=== PATIENT | female | born 1930 | race Caucasian/White ===

== ENCOUNTER 2016-09-08 10:27 | Observation (INO) | payer MEDICARE, OTHER ==
[~2016-09-08] VITALS: Ht 167.6 cm; Wt 120.4 kg
[2016-09-08] VITALS (8 sets, daily range): BP systolic 86–154; BP diastolic 50–79; PULSE 60–68; RESP 16–20; O2SAT 94–97
[~2016-09-08 10:27] MED LIST: ASPI-628 PO; ATRV10T PO; CEPH500C PO; CHOL200025 PO; CYAN1TAB42 PO; HYDR25TA4 PO; MAGN250T29 PO; METO25TA6 PO; RASA1TAB2 PO; ROPI8TAB PO
--- NOTE | 2016-09-08 13:14 | NUR ---
Admission Received female patient from [facility], pt arrive on unit at about 1210. Pt alert and oriented, denies pain, sob. VSS. telemetry placed. informed of arrival. Pt oriented to unit and call light. POC pending. will continue to monitor.
[2016-09-08] MEDS ORDERED: Alum-Mag Hydrox-Simeth 30 mL Suspension PO PRN (14:30)
[2016-09-08] MEDS ORDERED: Polyethylene Glycol (PEG) 17 Gm Powder PO PRN (14:30)
[2016-09-08] MEDS ORDERED: Ondansetron 2 mg/mL 2 mL Inj IVPUSH PRN (14:30)
[2016-09-08 14:53] LABS: APPEARANCE,URINE HAZY (CLEAR,HAZY); COLOR,URINE YELLOW (YELLOW); OCCULT BLOOD,URINE NEGATIVE (NEGATIVE); PH,URINE 5.5 (5.0-8.0); UROBILINOGEN,URINE NORMAL (NORMAL)
--- NOTE | 2016-09-08 15:00 | NUR ---
Chest pressure pt reported moderate 4-5/10 mid sternal chest pressure. non radiating, denies dizziness. mild anxiety. VSS. EKG obtained. pt stated spontaneous resolve of this pressure after a few minutes. MD informed. pacer interrogated. pt stated pressure lingered scantly until ambulating to bathroom, steady gait with fww. post bathroom visit, pressure gone and patient states she felt much better. will continue to monitor.
--- NOTE | 2016-09-08 15:07 | PCM.HPMED ---
Subjective Date of Service Sep 08, 2016 Primary Provider: Admitting Physician: Shahram Vasquez DO Primary Care Physician: Isabel Montejo MD Attending Physician: Shahram Vasquez DO Admit Status: Direct Admit, Admit to Yellow Team Chief Complaint: Chest pressure History of Present Illness: Lore Prieto is an 86-year-old female with past medical history of paroxysmal A. fib, severe aortic stenosis, congestive heart failure, Parkinson's disease. The patient woke up this morning with some chest pressure which was moderate in nature, no radiation. Accompanied by heart palpitations minor shortness of breath dizziness and weakness. She denies any nausea vomiting, diaphoresis. She got up and took 325 mg of aspirin and called EMS. The patient lives on the [facility], she was seen at the [facility] and transferred here after the physician had discussed with her a&p technician Dr. Membreno who suggested the patient be transferred to [facility]. The patient denies any recent medication changes, she denies any headaches vision changes, congestion sore throat runny nose nausea vomiting diarrhea constipation and abdominal pain dysuria rashes or lesions. She does have some chronic lower extremity edema which is been stable. Review of Systems: As in history of present illness, otherwise 12 point systems negative Allergies Coded Allergies: clarithromycin (Verified Allergy, Unknown, 08/29/14) erythromycin base (Verified Allergy, Unknown, Nausea/Vomiting, 08/30/14) Home Medications Aspirin, Lipitor, Sinemet, flecainide, hydrochlorothiazide, ropinirole, Zoloft, metoprolol, Rasagiline PMH Paroxysmal A. fib, congestive heart failure, macular degeneration, Parkinson's disease, hyperlipidemia, severe aortic stenosis Surgical History Pacemaker, cataract surgery, cholecystectomy, tonsils and adenoids Family History Mother at age 86 of multiple myeloma. Father of the flu but also had Parkinson's. Lots of coronary artery disease in the family Social History Hx Alcohol Use: No Hx Substance Use: No Hx Tobacco Use: Yes Smoking Status: Former Smoker Living Arrangement: Alone Exam Vital Signs Vital Sign - Last Date Time Temp Pulse Resp B/P Pulse Ox O2 Delivery O2 Flow Rate FiO2 09/08/16 12:21 97 Room Air 09/08/16 12:20 63 09/08/16 12:18 37.2 18 128/70 Exam General: Alert, Oriented X3 NAD Head: Normocephalic, atraumatic Eyes: CRISTI, EOMI, no scleral Icterus Oropharynx: pink moist oral mucosa Neck: supple, trachea midline, no adenopathy Chest: clear to auscultation B/L, no wheezing rales or rhonchi Heart: Regular rate and rhythm. Distant heart sounds, 2/6 systolic ejection murmur Abdomen: soft, non-tender. Bowel sounds are normoactive. No guarding or rebound. Extremities: no cyanosis, clubbing. No acute joint inflammation. Chronic lymphedema, 1+ pitting edema in her lower extremities Skin: no acute rashes or lesions noted Neuro: Cranial nerves II-XII intact, no focal findings. Psych: normal judgement and insight. Lab and Diagnostics Labs Labs reviewed from [facility] Hemoglobin 13, WBCs 8.3 platelets 244. Sodium 138, potassium 3.7, BUN 21, creatinine 0.6, blood sugars 105. INR of 1 X-Rays, CTs and MRIs Chest x-ray from transferring hospital showed no acute cardiopulmonary disease 12-lead ECG EKG reviewed shows atrial paced rhythm with left axis deviation and a rate of 60 Assessment & Plan This is an 86-year-old female with known aortic stenosis, congestive heart failure and paroxysmal A. fib. She presented with nonspecific/atypical chest pressure and was transferred to [facility] per her a&p technician's recommendation Dr. Membreno. On admission she was chest pain-free. Chest pain: -Trend troponin, when necessary EKG -Aspirin, statin, oxygen as needed, morphine and nitroglycerin as needed -I discussed the patient with cardiology who recommended trending troponin, no stress test due to severe aortic stenosis. He did not recommend echocardiogram as the patient already has known severe aortic stenosis. Aortic stenosis: Severe -Last echocardiogram was October 2015. -Cardiology recommended against repeat echo -Consideration of valvular replacement should be a discussion between her a&p technician and the patient. She has an appointment with Dr. Membreno next month Paroxysmal A. fib: -Watch on telemetry -Continue metoprolol, she takes 50 mg every morning and 75 mg every afternoon. Continue flecainide Hyperlipidemia: -Continue Lipitor Parkinson's disease: -Continue home meds as appropriate CODE STATUS: Full code DVT prophylaxis: Heparin every 8 Disposition: Patient lives at home alone, independent with her ADLs. Pending hospital course The patient has been placed on observation status Time spent 65 minutes Shahram Vasquez DO Sep 08, 2016 15:07
[2016-09-08] MEDS ORDERED: METO75TA PO (15:51)
[2016-09-08] MEDS ORDERED: ASPI-973 PO (15:58)
[2016-09-08] MEDS ORDERED: LVCR25100 PO (17:20)
--- NOTE | 2016-09-08 18:22 | NUR ---
Case Management: ANAND explained to patient at 1800, all questions answered. Signed original placed in chart, copy given to patient. Offered Medicare Part D Drug info--patient declined. Renetta Jha RN
[2016-09-08] MEDS: Heparin 5,000 Unit/mL Inj SUBQ SCH (19:30)
[2016-09-08] MEDS ORDERED: ROPINIROLE 8 MG PO SCH (21:00)
[2016-09-09] VITALS (8 sets, daily range): BP systolic 86–152; BP diastolic 48–78; PULSE 62–72; RESP 16–20; O2SAT 95–97
[2016-09-09] MEDS: Heparin 5,000 Unit/mL Inj SUBQ SCH ×3 (02:35→17:05)
--- NOTE | 2016-09-09 06:25 | NUR ---
Patient has denied any chest pain over night. She did however report some lightheadedness when sitting up in chair earlier in the evening. Her SBP while sitting in chair was in 80s, returning to 120s after lying down. An orthostatic bp was checked later when she got up to bathroom with no drop in pressure noted. Patient denied any lightheadedness at this time. Patient is complaining about the swelling in her legs, SCDs placed on legs and feet floated on pillows.
--- NOTE | 2016-09-09 08:04 | PCM.PNMED ---
Subjective Date of Service Sep 09, 2016 Subjective No CP or dyspnea. A lot of leg edema over last 2 months. No palitations. No cough, nausea, or vomiting. Exam Vital Signs Vital Sign - Last Date Time Temp Pulse Resp B/P Pulse Ox O2 Delivery O2 Flow Rate FiO2 09/09/16 05:08 62 125/60 09/09/16 05:08 36.3 09/08/16 23:47 16 96 Room Air Exam Alert and oriented. Fluent speech. Anicteric sclera. Lungs clear, normal rate heart regular Abdomen soft, ND gross pedal edema bilaterally No rash IVs and Medications Medications Reviewed: Medications were reviewed in detail Lab and Diagnostics X-Rays, CTs and MRIs Chest x-ray from transferring hospital showed no acute cardiopulmonary disease 12-lead ECG EKG reviewed shows atrial paced rhythm with left axis deviation and a rate of 60 Assessment & Plan This is an 86-year-old female with known aortic stenosis, congestive heart failure and paroxysmal A. fib. She presented with nonspecific/atypical chest pressure and was transferred to [facility] per her detonator maker's recommendation Dr. Membreno. On admission she was chest pain-free. 1. Chest pain, POA and resolved: -Trend troponin, when necessary EKG -Aspirin, statin, oxygen as needed, morphine and nitroglycerin as needed -I discussed the patient with cardiology who recommended trending troponin, no stress test due to severe aortic stenosis. He did not recommend echocardiogram as the patient already has known severe aortic stenosis. All trops negative, she had transient palpitations yesterday. Aortic stenosis: Severe -Last echocardiogram was October 2015. -Cardiology recommended against repeat echo -Consideration of valvular replacement should be a discussion between her detonator maker and the patient. She has an appointment with Dr. Membreno next month Paroxysmal A. fib, chronic: -Watch on telemetry -Continue metoprolol, she takes 50 mg every morning and 75 mg every afternoon. Continue flecainide She also has a H/O transient low BP recently. Hyperlipidemia: -Continue Lipitor Parkinson's disease: -Continue home meds as appropriate CODE STATUS: Full code DVT prophylaxis: Heparin every 8 Disposition: Patient lives at home alone, independent with her ADLs. Pending hospital course The patient has been placed on observation status Will discuss with cardiology this AM. Pain Evaluation: Adequate Pain Control Resuscitation Status: CPR: Attempt Resuscitation Time spent 25 min Naresh Quezada MD Sep 09, 2016 08:04
--- NOTE | 2016-09-09 14:28 | NUR ---
Medications 0940 - Notified Dr. Quezada in morning multi-disciplinary rounds that her Metoprolol home dose was different than what was ordered. He said he would look into it and correct or possibly change the dosage. Also, notified him that her Sinemet dosage had not been confirmed yet with her Primary Care Provider (PCP). He said once it had been confirmed to let him know and he would reorder it. 1015 - Spoke with Dr. Quezada again as she had requested that her Zoloft be discontinued since she said one of her doctors had been thinking about stopping due to a possible drug interaction with her Sinemet. He said he would discontinue it which he did. Also, pointed out that upon taking her blood pressure this morning her right arm read 86/48 and her left arm was 135/49. Dr. Velázquez was notified sometime later as well and said to take her blood pressure on her left arm from now on. Notified Belem the PROVIDER RELATIONS CONSULTANT. Her Sinemet dose was clarified from her PCP records and discussed with Pharmacist Amrit Keys. Dr. Quezada re-ordered it. Patient brought loose pills of Ropinirole in from home instead of in a pill bottle. Per Hospital policy it cannot be given this way. Amrit placed an order for the hospital pharmacy to provide the medication instead. Care continues.
[2016-09-09] MEDS ORDERED: Carbidopa-Levodopa 50-200 mg ER12 Tablet PO SCH (14:30)
--- NOTE | 2016-09-09 14:44 | CONS ---
[address] [address] CONSULTATION REPORT PATIENT: YESI PRABHAKAR : 1930 MR#: [id number] ADMIT: 09/08/2016 JOB ID: [id number] DATE OF SERVICE: 09/09/2016 HISTORY OF PRESENT ILLNESS: The patient is an 86-year-old female that I have been asked to see by the hospitalist admitted with symptoms of chest discomfort in the setting of severe aortic stenosis. The patient is a delightful 86-year-old female who lives independently in a small apartment in [place] with her daughter close by. She has a history of Parkinson's disease, but is able to take care of all of her usual daily activities and chores and gets around with the aid of a walker without significant difficulty. She has a history in the past of paroxysmal atrial fibrillation and tachybrady syndrome and underwent pacemaker placement in 2014 and has been on low-dose flecainide therapy for some time now. She has also been followed for aortic stenosis identified on exam in June 2014 with an echocardiogram at that time demonstrating mild to moderate aortic stenosis and a repeat echocardiogram in October of 2015 showing evidence of severe aortic stenosis. Over the past year, the patient has been aware of gradually progressive fatigue and weariness. She does not describe significant exertional dyspnea or any anginal discomfort and has no complaints of nocturnal pulmonary congestion. 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 The week before she had another episode similar, but this occurred after she had been up and about during the day but was sitting at rest and lasted for briefer period of time, perhaps 5 minutes. She contacted the [place] [facility] and was seen there for evaluation of chest discomfort, and because of her history, she was transported to [facility] for further investigation. She has not had any recurrent episodes. Her pacemaker device check last night by the device rep I have reviewed and a copy is placed on the chart demonstrating what appears to be an atrial tachycardia at a rate of around 150 beats per minute with 1:1 ventricular conduction. PAST MEDICAL HISTORY: Notable for chronic lower extremity edema, the etiology of which is uncertain. Her echocardiogram in October 2015 showed normal right ventricular size and function, within normal estimated pulmonary artery pressure. She has a history of Parkinson's disease with bilateral upper extremity parkinsonian tremor. She has a history of moderate obesity and hypertension. REVIEW OF SYSTEMS: Notable for daytime hypersomnolence and increased fatigue. Dr. Montejo, her primary care provider in [place], has ordered a home sleep apnea evaluation which is due in the very near future. REVIEW OF SYSTEMS: Otherwise unremarkable. PHYSICAL EXAMINATION: Shows a very pleasant, articulate 86-year-old female. She has obvious parkinsonian tremor in both upper extremities. She appears well and has no of tachypnea apparent. She is examined sitting in the chair. Her jugular venous pressure is difficult to evaluate, but her jugular venous pulse is not visible above the clavicle in the sitting position. Lung hairston are clear bilaterally. Heart tones are fairly distant, but she does have a soft-sounding mid-peaking systolic ejection murmur. I do not hear a ventricular gallop. Abdomen is moderately obese. Distal extremities show 3+ bilateral lower extremity edema with moderate erythema visible. LABORATORY: Notable for serial normal troponins. BNP is elevated at 746. Chest x-ray appears unremarkable. EKG shows an atrially paced rhythm with otherwise a normal QRS pattern. IMPRESSION: This patient's episode of chest discomfort was clearly related to a supraventricular tachycardia of limited duration. This does not represent an acute coronary syndrome, and she requires no further investigation in that regard. I do want to repeat her echocardiogram to look both and her central venous pressure and to re-evaluate for aortic valve since her examination is a little bit difficult, and I suspect that her aortic stenosis is progressive. At this point, however, I do not believe that she is clearly symptomatic from her aortic stenosis, and I would wonder whether or not her dysrhythmias and daytime fatigue might not represent side effects from obstructive sleep apnea. I am going to review the results of the echocardiogram with the patient later today. I am going to change her from hydrochlorothiazide to low-dose furosemide for her edema and increase her metoprolol to 75 mg b.i.d. and see if that will make a difference with her dysrhythmia. She is scheduled to follow up with Dr. Membreno in our office in about three weeks, and she will keep that appointment. As long as her echocardiogram does not demonstrate any concerning abnormalities, I think it is reasonable for her to be discharged home later today with these adjustments made.
--- NOTE | 2016-09-09 16:04 | DRSVH ---
[facility] [address] [place] [address] Echocardiogram Report Name: YESI PRABHAKAR RStudy Date: 09/09/2016 Height: 66 in Hospital Exam Location: [facility] Weight: 265 lb Gender: Female BSA: 2.3 m2 : 1930 Age: 86 yrs BP: 135/49 mmHg Reason For Study: Aortic valve stenosis Ordering Physician: Performed By: Ny Maldonado Referring Physician: Isabel Montejo Interpretation Summary The study quality was technically difficult. The left ventricle is normal in size. The ejection fraction is estimated to be 60-65%. The right ventricle is normal in size and function. There is a pacemaker lead in the right ventricle. There is mild to moderate mitral regurgitation. The aortic valve is moderately calcified. The aortic valve is not well visualized. The peak aortic velocity is 3.6 m/sec. The aortic valve mean gradient is 34 mmHg. The calculated aortic valve area is 0.79 cm2. There is moderate to severe aortic stenosis. There is mild tricuspid regurgitation. The right ventricular systolic pressure is estimated at 36 mmHg assuming a right atrial pressure of 8 mm Hg. Procedure: A two-dimensional transthoracic echocardiogram with color flow and Doppler was performed. There is no prior echocardiogram noted for this patient. The study quality was technically difficult. The patient was in normal sinus rhythm during the exam. Left Ventricle: The left ventricle is normal in size. The LVOT diameter is 2.2 cm. The LVOT velocity is 0.74 m/s. Left ventricular wall thickness is mildly increased. There is no thrombus. The ejection fraction is estimated to be 60-65%. There are no obvious focal wall motion abnormalities noted but poor endocardial definition reduces the sensitivity for the detection of such. Spectral Doppler of the mitral valve is reversed, with an E/A wave ratio < 1.0. Right Ventricle: There is a pacemaker lead in the right ventricle. The right ventricle is normal in size and function. Atria: The left atrium is moderately dilated. Right atrial size is normal. There is no Doppler evidence for an interatrial shunt. Mitral Valve: There is mild mitral annular calcification. There is mild to moderate mitral regurgitation. Aortic Valve: The aortic valve is not well visualized. The aortic valve is moderately calcified. The calculated aortic valve area is 0.79 cm2. The peak aortic velocity is 3.6 m/sec. The aortic valve mean gradient is 34 mmHg. There is moderate to severe aortic stenosis. There is trace aortic regurgitation. Tricuspid Valve: The tricuspid valve is not well visualized, but is grossly normal. There is mild tricuspid regurgitation. The right ventricular systolic pressure is estimated at 36 mmHg assuming a right atrial pressure of 8 mm Hg. Pulmonic Valve: The pulmonic valve is not well visualized. Great Vessels: The aortic root is normal size. The ascending aorta is normal in size. The aortic arch could not be visualized. The IVC is dilated (diameter is greater than 2.1 cm) yet it collapses greater than 50% with a sniff. This suggests a right atrial pressure of 8 mm Hg. Pericardium/ Pleura There is no pericardial effusion. MMode/2D Measurements & Calculations LVIDd: 5.5 cm LA dimension: 4.5 cm RA long axis LVOT diam LVIDs: 3.5 cm FS: 36.8 % LA A2 area: 25.1 cm RA area AoV Opening EPSS: 0.42 cm LA A4 area: 20.3 cm IVSd: 1.1 cm LA length (vol): 4.9 cm: 17.0 cm Ao root diam LVPWd: 0.88 cm LA vol: 88.0 ml RA vol LA vol index : 47.1 ml Aortic Jxn RA : 20.9 mm2 asc Aorta IVC diam: 2.5 cm Diam: 2.9 cm LV roque. diameter/BSA LV sys. diameter/BSA RVD1 (basal) (cm/m^2): 2.5 (cm/m^2): 1.6 Doppler Measurements & Calculations Ao V2 max MV E max paul MV E/A: 0.79 TR max paul : 359.0 cm/sec : 68.6 cm/sec Med Peak E' Paul : 265.0 cm/sec Ao max P.6 mmHg MV A max paul TR max PG Ao mean P.8 mmHg : 86.8 cm/sec E/E' med: 15.3 : 28.1 mmHg LVOT Max Paul MV P1/2t Lat Peak E' Paul PA Accel Time : 74.3 cm/sec : 76.3 msec : 0.11 sec E/E' lat: 11.7 YAHAIRA(I,D): 0.79 cm E/e' average sev ratio: 0.21 MV dec time: 0.25 sec MV P1/2t max paul Ao V2 mean LV V1 max PG : 275.0 cm/sec MVA(P1/2t) Ao V2 VTI: 99.4 cm LV V1 VTI : 20.6 cm : 2.9 cm2 YAHAIRA(V,D): 0.79 cm2 YAHAIRA indexed to BSA (cm^2/m^2): 0.35 Reading Physician:PM
--- NOTE | 2016-09-09 16:11 | NUR ---
Social Work Note: Initial Assessment Data& Assessment: EMR reviewed. SW met with pt and pt daughter at bedside to discuss discharge planning, SW role explained. Lore Prieto is a 86 year old female under observation for chest pain. Pt has Medicare and [employer] supplemental insurance coverage. Pt sees Isabel Montejo MD for primary care. Pt lives in [place] in [place] first floor apartment [place]. Pt does not drive. Pt uses a 3 wheeled walker at baseline. Pt does not have SNF hx but has had [facility] in the past. Pt feels like she is not at her baseline mobility and is concerned about readmission to the hospital. SW and pt discussed having home health services again. Pt is agreeable to [facility] again, ( list provided for preferences, however [facility] is the only agency that services [place]). Referral to [facility] for RN, PT and SW. Pt does not have LTC insurance. Pt is not a service connected herself, but her was 100% service connected and that is why she has the secondary [facility] insurance coverage. Pt has DPOA/Advance Directive paperwork completed, SW requested a copy for her chart when possible. Pt denies any other needs at this time. SW to continue to follow if any needs arise. Plan: Anticipated discharge home via POV when medically ready with [facility] RN, PT and SW to follow. Pt denies any other needs at this time. SW to continue to follow if any needs arise. ANA Wills Addendum: 09/09/16 at 1617 by ERIN VAUGHAN Amended: Links added.
--- NOTE | 2016-09-09 17:49 | PCM.DIMED ---
Discharge Instructions Date of Service Sep 09, 2016 Dates of Hospitalization Sep 08, 2016 at 12:16 Discharge Diagnosis Discharge Diagnosis 1. Paroxysmal atrial tachycardia 2. Moderate aortic stenosis 3. Leg edema Diet Low fat, Low Sodium Activity Limited until seen by PCP Patient Instructions Follow-up Provider: Isabel Montejo MD Follow-up with PCP in: 1 week Provider: Kim Membreno MD Follow-up in: 3 weeks Naresh Quezada MD Sep 09, 2016 17:49
[2016-09-09] MEDS ORDERED: FUR20 PO (17:51)
[2016-09-09] MEDS ORDERED: METO50TA3 PO (17:51)
[2016-09-09] MEDS ORDERED: POTA10CA42 PO (17:51)
--- NOTE | 2016-09-09 18:30 | NUR ---
Discharge She discharged from [facility] at 1830 and was taken via wheelchair to her daughter's car by Slime BULLARD. She collected and took all her belongings. IV and telemetry were discontinued intact. Her discharge paperwork was given to her and discussed with her daughter who said she would discuss it with [place] mom [place] they were in a [place] to discharge so they could make it to the [facility] in time. Paperwork given (hard copy of prescriptions, ferry pass, care notes, MD/nurse instructions). Spoke with Dr. Quezada multiple times before discharge asking him questions and updating him. She wanted to know how she was going to be able to take her medication tonight as the pharmacies were closing. Per Dr. Quezada, she can take her home Metoprolol, but adjust the dose to match the new order and then take her Lasix and Potassium tomorrow once she gets the medications from the pharmacy. Relayed this to the daughter who said she'd tell her mom.
--- NOTE | 2016-09-10 12:55 | PCM.DC.MED ---
Discharge Summary Date of Service Sep 09, 2016 Dates of Hospitalization Date of Hospital Admission Sep 08, 2016 at 12:16 Date of Discharge: Sep 09, 2016 Providers: Admitting Physician: Shahram Vasquez DO Primary Care Physician: Isabel Montejo MD Attending Physician: Shahram Vasquez DO Diagnosis at Time of Discharge Diagnosis at Time of Discharge 1. Paroxysmal atrial tachycardia 2. Moderate aortic stenosis 3. Leg edema Consultations Cardiology, [place] Procedures XRay, CTs & MRIs Chest x-ray from transferring hospital showed no acute cardiopulmonary disease ECG 12 Lead EKG reviewed shows atrial paced rhythm with left axis deviation and a rate of 60 Cardiac Echo Impression nterpretation Summary The study quality was technically difficult. The left ventricle is normal in size. The ejection fraction is estimated to be 60-65%. The right ventricle is normal in size and function. There is a pacemaker lead in the right ventricle. There is mild to moderate mitral regurgitation. The aortic valve is moderately calcified. The aortic valve is not well visualized. The peak aortic velocity is 3.6 m/sec. The aortic valve mean gradient is 34 mmHg. The calculated aortic valve area is 0.79 cm2. There is moderate to severe aortic stenosis. There is mild tricuspid regurgitation. The right ventricular systolic pressure is estimated at 36 mmHg assuming a right atrial pressure of 8 mm Hg. Invasive Procedures None Brief History Lore Prieto is an 86-year-old female with past medical history of paroxysmal A. fib, severe aortic stenosis, congestive heart failure, Parkinson's disease. The patient woke up this morning with some chest pressure which was moderate in nature, no radiation. Accompanied by heart palpitations minor shortness of breath dizziness and weakness. She denies any nausea vomiting, diaphoresis. She got up and took 325 mg of aspirin and called EMS. The patient lives on the [facility] [place], she was seen at the [facility] and transferred here after the physician had discussed with her state editor Dr. Membreno who suggested the patient be transferred to [facility]. The patient denies any recent medication changes, she denies any headaches vision changes, congestion sore throat runny nose nausea vomiting diarrhea constipation and abdominal pain dysuria rashes or lesions. She does have some chronic lower extremity edema which is been stable. Hospital Course This is an 86-year-old female with known aortic stenosis, congestive heart failure and paroxysmal A. fib. She presented with nonspecific/atypical chest pressure and was transferred to [facility] per her state editor's recommendation Dr. Membreno. On admission she was chest pain-free. 1. Chest pain, POA and resolved: -Trend troponin, when necessary EKG -Aspirin, statin, oxygen as needed, morphine and nitroglycerin as needed -I discussed the patient with cardiology who recommended trending troponin, no stress test due to severe aortic stenosis. He did not recommend echocardiogram as the patient already has known severe aortic stenosis. All trops negative, she had transient palpitations yesterday. This is felt to relate to transient PAT. This was verified from her pacemaker interrogation. Her beta blockade will be increased to 75 mg metoprolol twice a day to decrease tachycardia. Was also noted that her blood pressure right arm is much lower than the blood pressure left arm and this must be considered in the future when following blood pressure and guiding therapy. Aortic stenosis: Severe -Last echocardiogram was October 2015. -Cardiology recommended against repeat echo -Consideration of valvular replacement should be a discussion between her state editor and the patient. She has an appointment with Dr. Membreno next month Echo revealed moderate to perhaps severe aortic stenosis but no evidence of interval changes. This is considered clinically stable and will be followed up by Dr. Membreno. Paroxysmal A. fib, chronic: -Watch on telemetry -Continue metoprolol, she takes 50 mg every morning and 75 mg every afternoon. Continue flecainide at prehospitalization dosing. She also has a H/O transient low BP recently. Hyperlipidemia: -Continue Lipitor Parkinson's disease: -Continue home meds as appropriate CODE STATUS: Full code DVT prophylaxis: Heparin every 8 Disposition: Patient lives at home alone, independent with her ADLs. Pending hospital course The patient has been placed on observation status Exam Vital Signs (Last) Date Time Temp Pulse Resp B/P Pulse Ox O2 Delivery O2 Flow Rate FiO2 09/09/16 16:12 36.6 63 18 134/78 96 Room Air Exam Patient is seen and examined on the day of discharge Test 09/08/16 14:29 09/08/16 14:40 09/09/16 02:19 Urine Color Yellow (YELLOW) Urine Appearance Hazy (CLEAR,HAZY) Urine pH 5.5 (5.0-8.0) Urine Specific Huntley 1.015 (1.003-1.035) Urine Protein Negativemg/dL (NEG,TRACE) Urine Glucose (UA) Negativemg/dL (NEGATIVE) Urine Ketones Negativemg/dL (NEGATIVE) Urine Occult Blood Negative (NEGATIVE) Urine Nitrite Negative (NEGATIVE) Urine Bilirubin Negative (NEGATIVE) Urine Urobilinogen Normalmg/dL (NORMAL) Urine Leukocyte Esterase Small (NEGATIVE) Urine RBC 0-2/hpf (0-2) Urine WBC 11-50/hpf (0-5) Urine Epithelial Cells Many/hpf (NONE-MOD) Urine Crystals None seen (NONE SEEN) Urine Bacteria Moderate/hpf (NONE-FEW) Urine Hyaline Casts None/lpf (NONE) Urine Granular Casts None seen (NONE SEEN) Urine Waxy Casts None seen (NONE SEEN) Urine Red Blood Cell Casts None seen (NONE SEEN) Urine White Blood Cell Casts None seen (NONE SEEN) Urine Mucus None seen (None Seen) Urine Trichomonas None seen (NONE SEEN) Urine Yeast None (NONE SEEN) Urinalysis Comment None Urine Culture Reflexed Indicated Pro-B-Type Natriuretic Peptide 746.6pg/mL (0-738) Troponin T 0.010ug/L (0.0-0.011) Discharge Medications Discharge Medications Aspirin (Aspirin) 81 Mg Tablet 81 MG PO DAILY (Reported) Atorvastatin (Lipitor) 10 Mg Tab 10 MG PO DAILY (Reported) Carbidopa/Levodopa 25-100 mg (Sinemet 25-100 mg) 1 Each Tablet 1 TABLET PO TID ( Reported) Cholecalciferol (Vitamin D3) (Vitamin D3) 2,000 Unit Tablet 2,000 UNIT PO DAILY (Reported) Cyanocobalamin/Folic Acid (Vitamin A25-Vwrga Acid Tablet) 1 Each Tablet 1 EACH PO DAILY (Reported) Furosemide (Furosemide) 20 Mg Tab 20 MG PO DAILY Prescribed by: NARESH SIN MD Metoprolol Tartrate (Metoprolol Tartrate) 50 Mg Tablet 75 MG PO BID Prescribed by: NARESH SIN MD Potassium Chloride (Potassium Chloride) 10 Meq Capsule.er 10 MEQ PO DAILY TAKE WITH FOOD Prescribed by: NARESH SIN MD Rasagiline Mesylate (Azilect) 1 Mg Tablet 1 MG PO DAILY (Reported) Ropinirole ER (Requip XL) 8 Mg Tab.er.24h 8 MG PO DAILY (Reported) Followup Plan Disposition: Home, with daughter with whom the entire situation and plan was discussed. Discharge Diet: Low fat, Low Sodium Discharge Activity: Limited until seen by PCP Follow-up Provider: Isabel Montejo MD Follow-up with PCP in: 1 week Provider: Kim Membreno MD Follow-up in: 3 weeks Time spent 40 minutes Naresh Sin MD Sep 10, 2016 12:55
[2016-10-23] MEDS ORDERED: ASPI325T32 PO (12:51)
[2016-10-23] MEDS ORDERED: METO50TA3 PO ×2 (12:51)
[2016-10-23] MEDS ORDERED: FLC50T PO (12:51)
== END 2016-09-09 18:30 | disposition home or self-care (01) ==
LOC: PCC 12:16
PROVIDERS: ADMIT Family Medicine; ATTEND Family Medicine
DX: I47.1 Supraventricular tachycardia (principal); I48.0 Paroxysmal atrial fibrillation; I35.0 Nonrheumatic aortic (valve) stenosis; R60.0 Localized edema; R07.9 Chest pain, unspecified; E78.5 Hyperlipidemia, unspecified; G20 Parkinson's disease; I50.9 Heart failure, unspecified; Z88.8 Allergy status to other drugs, medicaments and biological substances; Z79.82 Long term (current) use of aspirin; Z87.891 Personal history of nicotine dependence; Z95.0 Presence of cardiac pacemaker
CPT/HCPCS: 36415; 81000; 83880; 84484; 87086; 87088; 93005; C8929; G0378; G0379; J1644

== ENCOUNTER 2016-10-24 00:24 | Day surgery (SDC) | payer MEDICARE, OTHER ==
[2016-10-24] VITALS (17 sets, daily range): BP systolic 101–133; BP diastolic 43–82; PULSE 60–66; RESP 12–20; O2SAT 93–97
[~2016-10-24] VITALS: Ht 167.6 cm; Wt 122.3 kg
[~2016-10-24 00:24] MED LIST changes: -ASPI-628 PO; +ASPI325T32 PO; -CEPH500C PO; +FLC50T PO; -HYDR25TA4 PO; +LVCR25100 PO; -MAGN250T29 PO; -METO25TA6 PO; +METO50TA3 PO
[2016-10-24] MEDS: 0.9% Sodium Chloride 1,000 ML IV SCH ×3 (06:50→18:20)
[2016-10-24] MEDS ORDERED: FUR20 PO (07:44)
[2016-10-24] MEDS ORDERED: POTA10TA12 PO (07:44)
[2016-10-24 07:52] LABS: BASOPHILS % (AUTO) 0.6 % (0-3); EOSINOPHILS % (AUTO) 5.6 % (0-5); MONOCYTES % (AUTO) 9.7 % (4-12); Mean Corpuscular Hemoglobin 30.3 pg (27.0-35.0); Mean Corpuscular Volume 86.7 fL (81-100); NEUTROPHILS % (AUTO) 54.7 % (40-74); Platelet Count 228 bil/L (150-400)
[2016-10-24 08:11] LABS: INR 0.95 ratio
--- NOTE | 2016-10-24 08:38 | NUR ---
Arrival to [facility] Pt arrived to [facility], accompanied by daughter, at 0705 via wheelchair. Assisted to bed; pt w/ hx of Parkinson's. IVs started X2 and labs sent. Admission completed. Pt noted to have 3+ pitting edema to bilateral feet; 3+ non-pitting bilateral lower extremities to knees. Pt reports increased weight gain over past few months and was started on Furosemide while hospitalized in August, with little improvement in edema. Pt also reports being tired all the time. Wallace catheter placed without difficulty. Dr. Hernandes at bedside prior to procedure. Pt taken via hospital bed to [facility] at 0835.
[2016-10-24] MEDS ORDERED: fentaNYL-PF 50 mCg/mL 2 mL Inj ONE (08:56)
[2016-10-24] MEDS ORDERED: Heparin 10,000 Unit/1,000 mL NS Premix IV ONE (08:57)
[2016-10-24] MEDS ORDERED: Ondansetron 2 mg/mL 2 mL Inj IVPUSH PRN (10:40)
[2016-10-24] MEDS ORDERED: HYDROcodone-APAP 5-325 mg Tablet PO PRN (10:40)
[2016-10-24] MEDS ORDERED: Furosemide 10 mg/mL 2 mL Inj ONE (13:00)
[2016-10-24] MEDS ORDERED: Furosemide 10 mg/mL 2 mL Inj IV ONE (13:15)
--- NOTE | 2016-10-24 13:43 | NUR ---
Post Ablation/Transfer to floor Pt returned to [facility] following SVT ablation at 1100. Bilateral groin sites soft and non tender. Vitals stable throughout recovery. Per MD orders, pt given 20mg IV lasix, as pt held her morning dose. Pt taken to room 2007 at 1330 in stable condition. Report given to Blaire Dennis RN.
--- NOTE | 2016-10-24 18:27 | NUR ---
Post Ablation/Wallace Patient arrived to room via bed at 1345, awake a/o x 4, denies pain, nausea or sob. Bilat groin sites soft, no hematoma or bruising, min sang drainage. Bilat LE and feet with edema. Bilat pedal pulses weak but palpable. Patient oob at 1500 post bedrest, amb in room with walker, groin sites remain stable. Wallace cath removed at 1530, patient voided x 1. VSS, tele paced.
[2016-10-24] MEDS ORDERED: ROPINIROLE 2 MG PO SCH (21:00)
[2016-10-25] MEDS: 0.9% Sodium Chloride 1,000 ML IV SCH (02:50)
[2016-10-25 03:35] VITALS: BP 121/73; PULSE 63; RESP 16; O2SAT 93
--- NOTE | 2016-10-25 05:26 | NUR ---
Groin site Pt has left and right groin sites that are soft non tender with no hematoma noted. Pt had c/o upper left "soreness" in her chest x1 this shift that she felt was near where her pacemaker was located. This pain was at a tolerable level and did not require any pain medication. No further complaints noted. VSS and Tele Apaced 60's.
[2016-10-25 05:39] VITALS: PULSE 61
[2016-10-25] MEDS ORDERED: Vancomycin Inj 1,000 MG in IV Premix 1 EACH IV ONE (06:48)
[2016-10-25 07:46] VITALS: BP 143/78; PULSE 60; RESP 16; O2SAT 93
[2016-10-25 07:50] VITALS: PULSE 60
--- NOTE | 2016-10-25 08:50 | PCM.DIMED ---
Discharge Instructions Date of Service October 25, 2016 Dates of Hospitalization Discharge Diagnosis Discharge Diagnosis PSVT - AV Node Reentrant Tachycardia Sinus Bradycardia Dual chamber pacemaker Atrial Flutter Diet Discharge Diet: Heart Healthy Activity Discharge Activity: Other (To prevent infection, do not sit in a bath tub, hot tub or pool for 5 days. To prevent bleeding, do not lift, push or pull more than 10 lbs for 5 days.) Call your provider Call your provider for: Fever or Chills, Bleeding, Excessive diarrhea Patient Instructions Mid-level Provider (F9): Wili Coyle PA-C Follow-up with Mid-level in: 4 weeks (Cardiology office will call with an appointment.) Wili Coyle PA-C October 25, 2016 08:49
--- NOTE | 2016-10-25 10:18 | NUR ---
Discharge note Patient a/o x 4, denies pain, nausea or sob. VSS, tele SR. Bilat groin site soft, no hematoma or bruising. BLE and feet with edema 2-3+. Bilat pedal pulses weak but palpable. Patient oob amb with walker and sba, steady gait. IV SL x2 and tele removed intact. Patient given discharge instructions, medication reconciliation, ferry boarding pass, info on procedure and edema. No new prescriptions. All questions answered. Patient taken to the car via wheelchair with all belongings and discharged home with family. Addendum: 10/25/16 at 1103 by ALYSSA KAPLAN RN A.M. meds held per patient request as she wishes to take her own home meds after d/c this morning.
--- NOTE | 2016-10-25 14:18 | DIS ---
[address] [address] DISCHARGE SUMMARY PATIENT: YESI PRABHAKAR : 1930 MR#: [id number] ADMIT: 10/24/2016 JOB ID: [id number] DIS: 10/25/2016 DATE OF ADMISSION: 10/24/2016 DATE OF DISCHARGE: 10/25/2016 DATE OF SERVICE: 10/25/2016 REASON FOR ADMISSION: Electrophysiologic study and ablation of SVT. Heavy chest pressure during rapid heartbeats. BRIEF HISTORY: The patient is a delightful, 86-year-old woman with a history of paroxysmal atrial flutter and more often recurrent highly symptomatic supraventricular tachycardia. 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 She continues to have episodes of rapid palpitations and her pacemaker has documented supraventricular tachycardia. COURSE IN HOSPITAL: The patient was admitted through the [facility] and taken to the [facility], where she underwent the electrophysiologic study and ablation of an AV node slow pathway. She tolerated the procedure well and there were no incidents. She was taken back to the [facility] for recovery from sedation and then transferred up to the [facility] for overnight observation. She did well overnight, she was ambulatory without difficulty, and had no bleeding. There was no recurrence of tachycardia and she had no chest pain in the morning. She felt well for discharge home. DISPOSITION: The patient was discharged home in good condition with a followup appointment at the [facility] Cardiology office to be arranged in one month. She was asked not to lift, push or pull more than 10 pounds for five days to prevent bleeding and to not sit in a hot tub, bathtub, or pool for five days to prevent infection. She will follow her heart healthy diet and take medications as prescribed. DISCHARGE MEDICATIONS: 1. Aspirin 325 mg daily. 2. Atorvastatin 10 mg daily. 3. Carbidopa/levodopa 25/100 mg one tablet t.i.d. 4. Flecainide 50 mg q.12 h. 5. Furosemide 20 mg daily. 6. Metoprolol tartrate 50 mg b.i.d. 7. Potassium chloride 10 mEq daily. 8. Ropinirole 8 mg q.h.s. FINAL DIAGNOSES: 1. Symptomatic, recurrent supraventricular tachycardia. 2. History of atrial flutter. 3. Hypertension. 4. Tachybrady syndrome and a dual-chamber pacemaker.
--- NOTE | 2016-10-28 06:50 | PROCED ---
[address] [address] PROCEDURE NOTE PATIENT: YESI PRABHAKAR : 1930 MR#: [id number] ADMIT: 10/24/2016 JOB ID: [id number] DATE OF SERVICE: 10/24/2016 PREOPERATIVE DIAGNOSIS(ES): 1. Sick sinus syndrome with dual-chamber pacemaker in place. 2. Recurrent symptomatic supraventricular tachycardia. POSTOPERATIVE DIAGNOSIS(ES): 1. Sick sinus syndrome with dual-chamber pacemaker in place. 2. Recurrent symptomatic supraventricular tachycardia. 3. Atrioventricular briana reentry tachycardia. PROCEDURES PERFORMED: 1. Comprehensive electrophysiology study with left atrial pacing recording via the coronary sinus catheter. 2. Three-dimensional electroanatomic mapping using the CARTO 3 system. 3. Supraventricular tachycardia ablation (atrial ablation; slow pathway modification). 4. Fluoroscopy. 5. Periprocedural pacemaker programming and reprogramming with interrogation. 6. Fluoroscopy. SURGEON: Trae Hernandes M.D., electrophysiology attending. DEPUTY ASSESSOR: Hugo Snyder/Shraddha Austin. ANESTHESIA: Gentle dosing of Versed and fentanyl were utilized for appropriate level of sedation. INDICATION FOR PROCEDURE: The patient is a pleasant 86-year-old woman with sick sinus syndrome with a dual-chamber pacemaker in place. Now symptomatic with current SVT. After discussion of the risks and benefits of catheter based mapping ablation, she opted to proceed. PROCEDURAL DESCRIPTION: Following informed signed consent, the patient was taken to the EP laboratory in the nonsedated fasting state where she was prepped and draped in the usual sterile fashion. Bilateral groins were infiltrated with 1% lidocaine. Then, using modified Seldinger technique, two 6-Congolese sheaths were inserted into the left femoral vein and a 7 and 8-Congolese sheath were inserted into the right femoral vein. A deflectable decapolar catheter was advanced into the coronary sinus with most proximal bipole at the os of the sinus. A CRD 2 catheter was advanced to the His position and a Catrachita quadripolar catheter was advanced to the RV apex. The patient's pacemaker was interrogated showing excellent lead parameters and she was reprogrammed to VVI 40 beats per minute. During the case she has sinus rhythm in the low 50s, high 40s at baseline intrinsically. A comprehensive electrophysiology study was undertaken with right atrial pacing and recording, right ventricular pacing and recording, His bundle recording, and left atrium pacing and recording via the coronary sinus catheter. Retrograde conduction showed a concentric atrial activation pattern with a retrograde jump. Antegrade conduction showed an antegrade jump at ultimately the patient's clinical tachycardia was inducible with both burst pacing as well as single extrastimuli. This was a regular narrow tachycardia with a VA time of 0 msec and a tachycardia cycle length of 450 msec. RV apical entrainment led to a pseudo VA AV response. Taken together, this data was consistent with AV briana reentrant tachycardia. We, therefore, prepared for slow pathway modification. An F curve 4 mm ablation catheter was brought to the field and used to create a three-dimensional electroanatomic map of the right atrium and the triangle of Miguel. Ablation lesions were placed at the base of the triangle of Miguel in the region of the slow pathway ultimately leading to multiple conducted junctional beats. Aggressive induction maneuvers were then undertaken with both burst pacing, and single extrastimuli. Ultimately only one single echo was seen without more than one echo and no further inducible AV briana reentrant tachycardia during our waiting. This, therefore, concluded our procedure. All catheters and sheaths were removed. Manual pressure was held for hemostasis. The patient's pacemaker was interrogated showing excellent sensing threshold and impedances on both leads. She was reprogrammed to DDDR 60-130 beats per minute with VIP on. COMPLICATIONS: None. ESTIMATED BLOOD LOSS: Negligible. FINDINGS: 1. Baseline rhythm is sinus with an RR interval of 1336 msec, DC 147 msec, QRS 108 msec, QT 515 msec. 2. Intracardiac intervals: AH interval 153 msec. HV 31 msec. Post ablation intervals are 149 msec and 31 msec respectively. 3. Retrograde conduction atrial activation is concentric. VA Wenckebach is 410 msec, ventricular ERP is 280 msec at a [address] VA ERP is less than or equal to this value. 4. Antegrade conduction: AV Wenckebach is seen at 430 msec. 5. Inducible AV briana reentry tachycardia as described above status post slow pathway modification without inducibility post ablation. IMPRESSION: Successful slow pathway modification for recurrent symptomatic AV briana reentrant tachycardia. PLAN: 1. Bed rest x 4 hours. 2. Continue aspirin and remainder of home medications. 3. Followup with myself or Dr. Membreno in clinic in 3-4 weeks. ATTENDING STATEMENT: Trae Hernandes M.D., electrophysiology attending, was present and supervised/performed all aspects of this procedure.
== END 2016-10-25 10:30 | disposition home or self-care (01) ==
LOC: SOUO 00:24 → PCC 14:00 → SOUO 10-25 10:30
PROVIDERS: ATTEND Internal Medicine Cardiovascular Disease
DX: I47.1 Supraventricular tachycardia (principal); I49.5 Sick sinus syndrome; Z95.0 Presence of cardiac pacemaker
CPT/HCPCS: 36415; 80048; 85025; 85610; 93005; 93613; 93621; 93653; 99152; 99153; C1730; C1732; C1893; J0131; J1644; J1940; J2250; J3010